=== PATIENT | female | born 1980 ===

== ENCOUNTER 2019-06-28 15:39 | Emergency (ER) | payer OTHER ==
--- OUTSIDE RECORDS SUMMARY | 2019-06-28 15:42 | XMS REPORT ---
:1980 Author Organization [facility] t Address [address] [place] [address] Care Team Providers Name Role Phone Vance Rodrigues Attending Clinician Problems This patient has no known problems. Allergies, Adverse Reactions, Alerts This patient has no known allergies or adverse reactions. Medications This patient has no known medications. Procedures This patient has no known procedures. Encounters Start End Encounter Admission Attending Care Care Encounter Source Date/Time Date/Time Type Type Clinicians Facility Department ID 2018-10-25 2018-10-25 Emergency Vance Merrill [facility] [id number] 17:15:44 20:20:00 Yanna Winter [id number] [place] [id number] [place] [id number] Results This patient has no known results.
[2019-06-28] MEDS ORDERED: MORPHINE 4 MG/ML SYR ONE (17:40)
[2019-06-28] MEDS ORDERED: ONDANSETRON 4 MG/2 ML VIAL ONE (17:40)
[2019-06-28 17:58] LABS: Absolute Lymphocytes (CBC) 1.2 K/uL (0.7-4.9); Basophils % 0.4 % (0-1.3); Hematocrit 36.2 % (36.0-45.0); Lymphocytes % 11.8 % (15.3-44.8); MPV 9.3 fL (7.6-11.3); RBC Red Blood Cell Count 4.38 M/uL (3.86-4.86)
[2019-06-28 18:09] LABS: ALT/SGPT 14 U/L (12-78); AST/SGOT 8 U/L (15-37); Albumin 3.6 g/dL (3.4-5.0); Alkaline Phosphatase 51 U/L (45-117); BUN Blood Urea Nitrogen 8 mg/dL (7-18); Bicarbonate 26 mmol/L (21-32); Bilirubin Direct 0.3 mg/dL (0-0.2); Bilirubin Total 1.1 mg/dL (0.2-1.0); Glucose Level 107 mg/dL (74-106); Lipase 83 U/L (73-393); Potassium 3.4 mmol/L (3.5-5.1); Protein, Total 7.2 g/dL (6.4-8.2); Sodium Level 141 mmol/L (136-145)
[2019-06-28 18:10] LABS: Urine Blood 3+ (NEG); Urine Glucose NEGATIVE (NEG); Urine Protein NEGATIVE (NEG); Urine Specific Gravity 1.025 (1.005-1.030); Urine pH 5.5 (5.0-7.0)
--- NOTE | 2019-06-28 19:23 | RAD REPORT ---
EXAM DESCRIPTION: CTAbdomen Pelvis W Contrast - 06/28/2019 7:08 pm CLINICAL HISTORY: Abdominal pain. ABD PAIN COMPARISON: No comparisons TECHNIQUE: Biphasic CT imaging of the abdomen and pelvis was performed with 100 ml non-ionic IV cont rast. All CT scans are performed using dose optimization technique as appropriate and may include automated exposure control or mA/KV adjustment according to patient size. FINDINGS: The lung bases are clear. The liver, spleen, pancreas, adrenal glands and kidneys are within normal limits. No bowel obstruction, free air, free fluid or abscess. The appendix is normal. No evidence of signi ficant lymphadenopathy. Large cystic pelvic mass is present measuring 10.3 x 8.7 cm with mild pelvic ascites seen. IMPRESSION: Large cystic pelvic mass is present (10.3 x 8.7 cm) with mild pelvic ascites. Primary di fferential considerations would include ovarian cystadenoma and cystadenocarcinoma.
--- NOTE | 2019-06-28 21:19 | RAD REPORT ---
EXAM DESCRIPTION: US - Pelvis Complete - 06/28/2019 9:00 pm CLINICAL HISTORY: rule out torsion Pelvic pain. COMPARISON: No comparisons FINDINGS: The uterus is normal in size, shape and echotexture. The uterus measures 10.4 x 5.5 x 4.1 cm. The endometrial stripe measures 10 mm, normal. Both ovaries are normal in size, shape and echotexture. The right ovary measures 3.1 x 2.5 x 2.2 cm. The left ovary measures 3.0 x 2.3 x 1.8 cm.. Large cystic lesion is present in the left adnexal reg ion measuring 10.2 x 6.6 x 9.2 cm. The lesion has a low-level echoes and an appearance most compatibl e with endometrioma. Normal Doppler blood flow was demonstrated to both ovaries. Small amount of pelvic ascites. IMPRESSION: No evidence of ovarian torsion. 10 cm cystic lesion left adnexal region is favored to represent an endometrioma.
[2019-06-28] MEDS ORDERED: KETOROLAC 30 MG/ML INJ ONE (21:37)
--- NOTE | 2019-06-28 21:48 | EDPHYS ---
Physician Documentation [facility] Name: Ginny Woodward Age: 39 yrs Sex: Female : 1980 Arrival Date: 06/28/2019 Time: 15:54 Bed 16 Private MD: ED Physician Juan Dobbs HPI: 06/27 17:45 This 39 yrs old Female presents to ER via Ambulatory with complaints of jmm Abdominal Pain, Diarrhea, Back Pain, Headache. 17:45 The patient presents with abdominal pain in the epigastric area, in the lower abdomen. jmm Onset: The symptoms/episode began/occurred gradually, 1 day(s) ago. The symptoms do not radiate. Associated signs and symptoms: Pertinent positives: nausea and vomiting, diarrhea. The symptoms are described as achy. Modifying factors: The symptoms are alleviated by nothing, the symptoms are aggravated by nothing. This is a 39 year old female with no chronic medical conditions that presents to the ED with complaints of abdominal pain, vomiting, 1 episode of diarrhea beginning yesterday. . 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 - Social history:: Smoking status: Patient denies any tobacco usage or history of. Patient/guardian denies using alcohol, street drugs, tobacco products. ROS: 17:45 Constitutional: Negative for fever, chills, and weight loss, Cardiovascular: Negative jmm for chest pain, palpitations, and edema, Respiratory: Negative for shortness of breath, cough, wheezing, and pleuritic chest pain. 17:45 Abdomen/GI: Positive for abdominal pain, vomiting, diarrhea. 17:45 All other systems are negative. Exam: 17:45 Head/Face: atraumatic. Eyes: EOMI, no conjunctival erythema appreciated ENT: Moist jmm Mucus Membranes Neck: Trachea midline, Supple Chest/axilla: Normal chest wall appearance and motion. Cardiovascular: Regular rate and rhythm. No edema appreciated Respiratory: Normal respirations, no respiratory distress appreciated 17:45 Constitutional: The patient appears in no acute distress, alert, awake. 17:45 Abdomen/GI: Inspection: abdomen appears normal, Bowel sounds: normal, Palpation: soft, moderate abdominal tenderness, in the epigastric area, right upper quadrant and right lower quadrant. 17:45 Musculoskeletal/extremity: ROM: intact in all extremities. 17:45 Skin: Appearance: Color: normal in color. 17:45 Neuro: Orientation: is normal, Mentation: is normal, Memory: is normal. 17:45 Psych: Behavior/mood is pleasant, cooperative. Vital Signs: 16:07 BP 102 / 65; Pulse 82; Resp 16; Temp 98.5; Pulse Ox 100% ; Pain 10/10; ll1 19:30 BP 112 / 66; Pulse 67; Resp 15; Pulse Ox 100% on R/A; vc 20:30 BP 97 / 60; Pulse 61; Resp 16; Pulse Ox 100% on R/A; vc 21:30 BP 100 / 67; Pulse 66; Resp 16; Pulse Ox 100% on R/A; vc MDM: 17:25 Patient medically screened. [facility] 21:46 Data reviewed: vital signs, nurses notes. Counseling: I had a detailed discussion with aster the patient and/or guardian regarding: the historical points, exam findings, and any diagnostic results supporting the discharge/admit diagnosis, lab results, radiology results, the need for outpatient follow up, to return to the emergency department if symptoms worsen or persist or if there are any questions or concerns that arise at home. ED course: Patient is advised to follow up with bump grader operator for further evaluation. Patient is otherwise given strict return precautions. Patient understood and agrees with the plan of care. . 06/27 17:34 Order name: Basic Metabolic Panel; Complete Time: 18:10 [facility] 06/27 17:34 Order name: CBC with Diff; Complete Time: 18:10 [facility] 06/27 17:34 Order name: Hepatic Function; Complete Time: 18:10 [facility] 06/27 17:34 Order name: Lipase; Complete Time: 18:10 [facility] 06/27 17:57 Order name: Urine Dipstick--Ancillary (enter results); Complete Time: 18:13 [facility] 06/27 17:57 Order name: Urine --Ancillary (enter results); Complete Time: 18:13 [facility] 06/27 17:34 Order name: IV Saline Lock; Complete Time: 17:42 [facility] 06/27 17:34 Order name: Labs collected and sent; Complete Time: 17:42 [facility] 06/27 17:34 Order name: Urine Dipstick-Ancillary (obtain specimen); Complete Time: 17:56 [facility] 06/27 17:50 Order name: CT Abd/Pelvis - IV Contrast Only; Complete Time: 19:27 [facility] 06/27 19:28 Order name: US Pelvis Complete; Complete Time: 21:21 [facility] 06/27 17:34 Order name: Urine Test (obtain specimen); Complete Time: 17:56 [facility] Administered Medications: 17:41 Drug: morphine 4 mg Route: IVP; Site: right antecubital; vc 20:30 Follow up: Response: No adverse reaction; Pain is decreased vc 17:41 Drug: Zofran (Ondansetron) 4 mg Route: IVP; Site: left antecubital; vc 20:30 Follow up: Response: No adverse reaction; Nausea is decreased vc 21:42 Drug: TORadol - Ketorolac 15 mg Route: IVP; Site: left antecubital; vc 22:00 Follow up: Response: No adverse reaction; Pain is decreased vc Disposition: 21:46 Chart complete. [facility] 06/28 07:09 Co-signature as Attending Physician, Juan Dobbs MD. [email or web address] Disposition: 06/28/19 21:48 Discharged to Home. Impression: Unspecified ovarian cysts. - Condition is Stable. - Discharge Instructions: Ovarian Cyst. - Prescriptions for Ibuprofen 800 mg Oral Tablet - take 1 tablet by ORAL route every 12 hours As needed take with food; 20 tablet. - Medication Reconciliation Form, Thank You Letter, Antibiotic Education, Prescription Opioid Use form. - Follow up: Private Physician; When: 2 - 3 days; Reason: Recheck today's complaints, Continuance of care, Re-evaluation by your physician. Signatures: Dispatcher [employer] EDMS Ronni Nicole PA PA Jaquelin Boyer RN RN Yunier Mendoza RN RN [facility] Juan Dobbs MD MD [email or web address] Corrections: (The following items were deleted from the chart) 06/27 22:03 21:48 06/28/2019 21:48 Discharged to Home. Impression: Unspecified ovarian cysts. vc Condition is Stable. Forms are Medication Reconciliation Form, Thank You Letter, Antibiotic Education, Prescription Opioid Use. Follow up: Private Physician; When: 2 - 3 days; Reason: Recheck today's complaints, Continuance of care, Re-evaluation by your physician. aster
--- NOTE | 2019-06-28 21:48 | ER ---
Nurse's Notes [facility] Name: Ginny Woodward Age: 39 yrs Sex: Female : 1980 Arrival Date: 06/28/2019 Time: 15:54 Bed 16 Private MD: Diagnosis: Unspecified ovarian cysts Presentation: 06/27 16:07 Chief complaint: Patient states: Upper abdominal pain with N/V/D for 2 days. ll1 Coronavirus screen: Proceed with normal triage. Patient denies a cough. Patient denies shortness of breath or difficulty breathing. Patient denies measured and/or subjective temperature greater than 100.4F prior to today's visit. Patient denies travel on a cruise ship or to a country the [facility] currently lists as an affected area. Patient denies contact with known and/or suspected case of COVID-19. Ebola Screen: Patient denies travel to an Ebola-affected area in the 21 days before illness onset. Initial Sepsis Screen: Does the patient meet any 2 criteria? No. Patient's initial sepsis screen is negative. Does the patient have a suspected source of infection? No. Patient's initial sepsis screen is negative. Risk Assessment: Do you want to hurt yourself or someone else? Patient reports no desire to harm self or others. Onset of symptoms was June 27, 2019. 16:07 Method Of Arrival: Ambulatory [facility] 16:07 Acuity: EDUARD 3 ll1 MANAGER: 17:30 LMP 06/27/2019 vc Historical: - Allergies: 16:09 No Known Allergies; ll1 - PMHx: 16:09 None; ll1 - PSHx: 16:09 Tubal ligation; ll1 - Immunization history:: Flu vaccine is not up to date. - Social history:: Smoking status: Patient denies any tobacco usage or history of. Patient/guardian denies using alcohol, street drugs, tobacco products. Screenin:30 Abuse screen: Denies threats or abuse. Nutritional screening: No deficits noted. vc Tuberculosis screening: No symptoms or risk factors identified. Fall Risk None identified. Assessment: 17:30 General: Appears in no apparent distress. uncomfortable, ill, slender, Behavior is vc calm, cooperative, appropriate for age. Pain: Complains of pain in abdomen Pain does not radiate. Pain currently is 10 out of 10 on a pain scale. Quality of pain is described as sharp, shooting, stabbing, Pain began 2-3 days ago. Neuro: Level of Consciousness is awake, alert, obeys commands, Oriented to person, place, time, situation. Cardiovascular: Capillary refill < 3 seconds Patient's skin is warm and dry. Respiratory: Airway is patent Respiratory effort is even, unlabored, Respiratory pattern is regular, symmetrical. GI: Abdomen is flat, non-distended, Bowel sounds present X 4 quads. Abdomen is tender to palpation X 4 quads. Abdomen has rebound tenderness Reports lower abdominal pain, upper abdominal pain, diarrhea, nausea, vomiting, since 2 days ago. 18:30 Reassessment: Patient appears in no apparent distress at this time. Patient and/or vc family updated on plan of care and expected duration. Pain level reassessed. Patient is alert, oriented x 3, equal unlabored respirations, skin warm/dry/pink. 19:30 Reassessment: Patient appears in no apparent distress at this time. Patient and/or vc family updated on plan of care and expected duration. Pain level reassessed. Patient is alert, oriented x 3, equal unlabored respirations, skin warm/dry/pink. 20:28 Reassessment: Patient appears in no apparent distress at this time. Patient and/or vc family updated on plan of care and expected duration. Pain level reassessed. Patient is alert, oriented x 3, equal unlabored respirations, skin warm/dry/pink. Patient states symptoms have improved. 21:42 Reassessment: Patient appears in no apparent distress at this time. Patient and/or vc family updated on plan of care and expected duration. Pain level reassessed. Patient is alert, oriented x 3, equal unlabored respirations, skin warm/dry/pink. Patient states symptoms have improved. Vital Signs: 16:07 BP 102 / 65; Pulse 82; Resp 16; Temp 98.5; Pulse Ox 100% ; Pain 10/10; ll1 19:30 BP 112 / 66; Pulse 67; Resp 15; Pulse Ox 100% on R/A; vc 20:30 BP 97 / 60; Pulse 61; Resp 16; Pulse Ox 100% on R/A; vc 21:30 BP 100 / 67; Pulse 66; Resp 16; Pulse Ox 100% on R/A; vc ED Course: 15:54 Patient arrived in ED. bp1 16:08 Triage completed. ll1 16:09 Arm band placed on Patient notified of wait time. ll1 17:11 Micky Nicole PA is PHCP. [facility] 17:11 Juan Dobbs MD is Attending Physician. [facility] 17:22 Jaquelin Wilkes, RN is Primary Nurse. vc 17:30 Patient has correct armband on for positive identification. Bed in low position. Call vc light in reach. Pulse ox on. NIBP on. 19:09 CT Abd/Pelvis - IV Contrast Only In Process Unspecified. EDMS 20:58 US Pelvis Complete In Process Unspecified. EDMS 21:04 Ultrasound completed. Patient tolerated well. Notified SUPERVISOR CLAIMS/PA micky. sg3 22:02 No provider procedures requiring assistance completed. IV discontinued, intact, vc bleeding controlled, No redness/swelling at site. Pressure dressing applied. Administered Medications: 17:41 Drug: morphine 4 mg Route: IVP; Site: right antecubital; vc 20:30 Follow up: Response: No adverse reaction; Pain is decreased vc 17:41 Drug: Zofran (Ondansetron) 4 mg Route: IVP; Site: left antecubital; vc 20:30 Follow up: Response: No adverse reaction; Nausea is decreased vc 21:42 Drug: TORadol - Ketorolac 15 mg Route: IVP; Site: left antecubital; vc 22:00 Follow up: Response: No adverse reaction; Pain is decreased vc Outcome: 21:48 Discharge ordered by MD. [facility] 22:03 Discharged to home ambulatory. vc 22:03 Condition: good 22:03 Discharge instructions given to patient, Instructed on discharge instructions, follow up and referral plans. medication usage, Demonstrated understanding of instructions, follow-up care, medications, Prescriptions given X 1. 22:03 Patient left the ED. vc Signatures: Dispatcher [employer] EDMS Micky Nicole PA PA Heather Vazquez sg3 Jaquelin Wilkes, RN RN vc Yunier Alexander RN RN ll1 Alia Cantrell bp1
[2019-06-28 22:09] VITALS: TEMP 98.5; O2SAT 100
[2019-06-28 22:14] VITALS: BP 100/67
== END 2019-06-28 22:03 | disposition home or self-care (01) ==
LOC: ER 15:39
DX: N83.209 Unspecified ovarian cyst, unspecified side (principal); R11.2 Nausea with vomiting, unspecified
CPT/HCPCS: 85025; 80048; 36415; 81025; 80076; 81003; 83690; 74177; 76856; 99284; Q9967; J2405